=== PATIENT | male | born 2000 | race Two or more races ===

== ENCOUNTER 2024-01-03 02:37 | Emergency (ER) | payer OTHER ==
[~2024-01-03] VITALS: Ht 188 cm; Wt 120.9 kg
[2024-01-03 02:43] VITALS: BP 125/67; PULSE 82; RESP 18; TEMP 98.4
[2024-01-03] MEDS: PredniSONE 20 MG TABLET PO ONE (03:21)
[2024-01-03] MEDS ORDERED: DIPH-1243 PO (03:23)
[2024-01-03] MEDS ORDERED: PRED-554 PO (03:23)
== END 2024-01-03 04:19 | disposition home or self-care (01) ==
LOC: EMS 02:40
DX: T78.40XA Allergy, unspecified, initial encounter (principal); X58.XXXA Exposure to other specified factors, initial encounter
CPT/HCPCS: 99283; J7512